=== PATIENT | female | born 1985 | race Caucasian/White ===

== ENCOUNTER → 2021-09-18 | Day surgery (SDC) | payer OTHER ==
[~2021-09-18] VITALS: Ht 165.1 cm; Wt 63.5 kg
[~2021-09-18] MED LIST: ATARAX25 MG PO; CLOPIDOGREL75 MG PO; ELIQUIS5 MG PO; HUMALOG100 UNIT/1 SC; LORAZEPAM1 MG PO; PERCOCET 5-3251 EACH PO; SERTRALINE HCL100 MG PO; VITAMIN D21250 MCG PO; ZYRTEC10 MG PO
[2021-09-18 09:12] LABS: HCG (URINE) SCREEN NEGATIVE (NEGATIVE)
[2021-09-18 10:15] LABS: BASOPHIL 0.4 % (0-2); HCT 46.7 % (37.0-47.0); HGB 15.1 g/dl (12.5-16.0); LYMPHOCYTE 8.9 % (15-48); MCH 28.3 pg (25.0-31.0); MCHC 32.3 g/dL (32.0-36.0); MCV 87.6 fL (78.0-100.0); MONOCYTE 4.3 % (0-12); MPV 9.5 fL (6.0-9.5); NEUTROPHIL 85.1 % (41-80); NRBC 0; PLT 290 K/uL (150-400); RBC 5.33 M/uL (4.20-5.40); RDW 14.1 % (11.5-14.0); WBC 11.5 K/uL (4.0-10.5)
[2021-09-18 10:23] LABS: INR 0.99 (0.9-1.2); PROTHROMBIN TIME 12.5 SECONDS (11.8-13.4)
== END | disposition home or self-care (01) ==
LOC: FAS 08:52
PROVIDERS: Oral & Maxillofacial Surgery
DX: K02.9 Dental caries, unspecified (principal); K04.7 Periapical abscess without sinus; M27.40 Unspecified cyst of jaw; D68.51 Activated protein C resistance; E11.65 Type 2 diabetes mellitus with hyperglycemia; I73.9 Peripheral vascular disease, unspecified; E78.1 Pure hyperglyceridemia; F17.210 Nicotine dependence, cigarettes, uncomplicated; Z86.16 Personal history of COVID-19; Z89.611 Acquired absence of right leg above knee; Z79.01 Long term (current) use of anticoagulants; Z79.02 Long term (current) use of antithrombotics/antiplatelets; Z88.5 Allergy status to narcotic agent; Z88.8 Allergy status to other drugs, medicaments and biological substances; Z89.511 Acquired absence of right leg below knee; Z95.5 Presence of coronary angioplasty implant and graft; Z90.49 Acquired absence of other specified parts of digestive tract; Z89.421 Acquired absence of other right toe(s); Z98.51 Tubal ligation status
CPT/HCPCS: 41823; D7140; D7310; 36415; 71045; 84703; 85025; 85610; 85730; 93005; J1170; J1885; J2250; J2405; J2540; J2704; J2710; J7120